=== PATIENT | female | born 1970 | race African-American/Black ===

== ENCOUNTER 2017-04-03 01:20 | Emergency (ER) | payer OTHER ==
[~2017-04-03] VITALS: Ht 167.6 cm; Wt 51.3 kg
[2017-04-03 01:20] VITALS: BP_SYST 135
[~2017-04-03 01:20] MED LIST: CETI1TAB2 PO; HYDR-2296 PO; IBUP-1969 PO; METH750T3 PO
--- NOTE | 2017-04-03 01:20 | NUR ---
Patient to ER bed 4 to gown for evaluation. Side rails up. Report given to RANJANA RAJAN.
--- NOTE | 2017-04-03 01:25 | NUR ---
Patient AOx4, [facility] with complaint of abdominal pain 02/15. Patient states she ate a salad during the day and the salad made her sick because it was 2 days old. Patient states she has hx of osteoarthritis, mast cell histamine disease, and dercum. Patient denies fever/chills/diarrhea. Vomiting x3 episodes. No acute distress noted at this time.
[2017-04-03] MEDS ORDERED: DIPHENHYDRAMINE INJ 50 MG/ML VIAL IVP ONE (01:30)
[2017-04-03] MEDS ORDERED: ONDANSETRON HCL 4 MG/2 ML VIAL IVP ONE (01:30)
[2017-04-03] MEDS ORDERED: NACL 0.9% 1,000 ML IV ONE (01:30)
[2017-04-03] MEDS ORDERED: methylPREDNISolone SOD SUCC/PF 62.5 MG/ML VIAL IVP ONE (01:30)
--- NOTE | 2017-04-03 01:30 | NUR ---
ER MD Benavidez at bedside examining patient.
[2017-04-03] MEDS ORDERED: FAMOTIDINE PF 20 MG/2 ML VIAL IVP ONE (01:45)
--- NOTE | 2017-04-03 01:50 | NUR ---
# 22 gauge angiocath placed to LAC. Use of asceptic technique. Opsite placed over site. Blood return noted. Blood for lab drawn from site. Flushed with 10 cc of normal saline. No evidence of infiltration noted. Patient tolerated well.
[2017-04-03 01:58] LABS: HEMATOCRIT 46.5 % (36-48); HEMOGLOBIN 15.2 g/dL (12.0-16.0); MEAN CORPUSCULAR HEMOGLOBIN 31 pg (27-31); MEAN CORPUSCULAR HGB CONC 33 % (32-36); MEAN CORPUSCULAR VOLUME 94 fL (79.0-98.0); PLATELET COUNT (AUTO) 269 K/uL (130-430); RED BLOOD CELL COUNT(AUTO) 4.95 MIL/uL (4.2-6.2); RED CELL DISTRIBUTION WIDTH 12.4 % (9.0-15.0)
[2017-04-03] MEDS ORDERED: ONDANSETRON HCL 4 MG/2 ML VIAL ONE (01:58)
[2017-04-03 02:06] LABS: CALCIUM 9.3 mg/dL (8.4-11.0); CREATININE 0.85 mg/dL (0.55-1.30)
[2017-04-03 02:12] LABS: TOTAL BILIRUBIN 0.3 mg/dL (0.0-1.0)
--- NOTE | 2017-04-03 02:20 | NUR ---
No adverse reactions noted after medication administration. Will continue to monitor.
--- NOTE | 2017-04-03 02:25 | NUR ---
IVF infusing with no s/s of infiltration at this time. Will cont to monitor.
[2017-04-03 03:25] VITALS: BP_SYST 129
--- NOTE | 2017-04-03 03:25 | NUR ---
Patient given written and verbal discharge instructions and verbalizes understanding. ER MD discussed with patient the results and treatment provided. Patient in stable condition. ID arm band removed. IV catheter removed intact and dressing applied, no active bleeding. Patient educated on pain management and to follow up with PMD. Pain Scale 2/10 tolerable to patient. Opportunity for questions provided and answered.
[2017-04-03 14:24] LABS: EOSINOPHILS % (AUTO) 1.2 % (0.0-4.0); LYMPHOCYTES % (AUTO) 34.5 % (20.5-51.5); MONOCYTES % (AUTO) 4.7 % (1.7-9.3); NEUTROPHILS % (AUTO) 59.1 % (40.0-70.0)
[2017-04-03 14:25] LABS: BASOPHILS % (AUTO) 0.5 % (0.0-2.0); LYMPHOCYTES # (AUTO) 2.4 K/uL (1.0-5.5); NEUTROPHILS # (AUTO) 4.2 K/uL (1.8-7.7)
[2017-04-03 14:26] LABS: EOSINOPHILS # (AUTO) 0.1 K/uL (0.0-0.4); MONOCYTES # (AUTO) 0.3 K/uL (0.0-1.0)
== END 2017-04-03 03:25 | disposition home or self-care (01) ==
LOC: SED 01:20
DX: T62.8X1A Toxic effect of other specified noxious substances eaten as food, accidental (unintentional), initial encounter (principal); R10.9 Unspecified abdominal pain; R11.2 Nausea with vomiting, unspecified; I10 Essential (primary) hypertension; F41.9 Anxiety disorder, unspecified; F17.200 Nicotine dependence, unspecified, uncomplicated; Y92.89 Other specified places as the place of occurrence of the external cause
CPT/HCPCS: 36415; 80053; 83690; 85007; 85027; 96361; 96374; 96375; 99284; J1200; J2405; J2930; J3490; J7030

== ENCOUNTER 2020-04-11 05:36 | Emergency (ER) | payer BC, OTHER ==
[~2020-04-11] VITALS: Ht 167.6 cm; Wt 70.3 kg
[2020-04-11 05:40] VITALS: BP_SYST 155
[2020-04-11 06:13] LABS: BASOPHILS # (AUTO) 0.1 K/uL (0.0-0.2); EOSINOPHILS # (AUTO) 0.1 K/uL (0.0-0.4); EOSINOPHILS % (AUTO) 0.8 % (0.0-4.0); HEMATOCRIT 35.3 % (36-48); HEMOGLOBIN 11.9 g/dL (12.0-16.0); LYMPHOCYTES # (AUTO) 2.3 K/uL (1.0-5.5); LYMPHOCYTES % (AUTO) 32.4 % (20.5-51.5); MEAN CORPUSCULAR HEMOGLOBIN 34 pg (27-31); MEAN CORPUSCULAR HGB CONC 34 % (32-36); MEAN CORPUSCULAR VOLUME 100 fL (79.0-98.0); MONOCYTES # (AUTO) 0.3 K/uL (0.0-1.0); MONOCYTES % (AUTO) 3.9 % (1.7-9.3); NEUTROPHILS # (AUTO) 4.3 K/uL (1.8-7.7); NEUTROPHILS % (AUTO) 61.9 % (40.0-70.0); PLATELET COUNT (AUTO) 200 K/uL (130-430); RED BLOOD CELL COUNT(AUTO) 3.54 MIL/uL (4.2-6.2); RED CELL DISTRIBUTION WIDTH 13.2 % (9.0-15.0)
[2020-04-11] MEDS ORDERED: NACL 0.9% 1,000 ML IV ONE ×2 (06:19→07:30)
[2020-04-11 06:47] LABS: CALCIUM 8.4 mg/dL (8.4-11.0); CREATININE 0.6 mg/dL (0.55-1.30)
[2020-04-11 06:53] LABS: TOTAL BILIRUBIN 0.4 mg/dL (0.0-1.0)
[2020-04-11] MEDS ORDERED: MORPHINE 4 MG/ML INJ. SYRINGE IVP ONE (07:00)
[2020-04-11] MEDS ORDERED: POTASSIUM CHLORIDE 20 MEQ TAB.PRT.SR PO ONE (07:00)
[2020-04-11 07:14] LABS: AMYLASE 62 U/L (0-100); LIPASE 80 U/L (73-393)
[2020-04-11 07:20] LABS: POTASSIUM 2.9 mmol/L (3.5-5.1)
[2020-04-11] MEDS ORDERED: ONDANSETRON HCL 4 MG/2 ML VIAL IVP ONE (07:30)
[2020-04-11] MEDS ORDERED: KETOROLAC TROMETHAMINE 30 MG VIAL IVP ONE (07:30)
[2020-04-11 07:43] LABS: PROTHROMBIN TIME 10.1 SECS (9.5-12.5)
[2020-04-11 09:18] LABS: BILIRUBIN,URINE NEGATIVE (NEGATIVE); BLOOD, URINE NEGATIVE (NEGATIVE); COLOR,URINE YELLOW (YELLOW); GLUCOSE,URINE NEGATIVE (NEGATIVE); KETONES,URINE NEGATIVE (NEGATIVE); LEUKOCYTE ESTERASE ,URINE NEGATIVE (NEGATIVE); NITRITE, URINE NEGATIVE (NEGATIVE); PROTEIN URINE NEGATIVE (NEGATIVE); UROBILINOGEN,URINE 0.2 (0.2-1.0)
[2020-04-11 09:23] LABS: CLARITY/URINE SLIGHTLY HAZY (CLEAR)
[2020-04-11 09:25] LABS: HCG,QUAL RESULT NEGATIVE (NEGATIVE)
[2020-04-11 09:39] VITALS: BP_SYST 135
== END 2020-04-11 09:38 | disposition home or self-care (01) ==
LOC: SED 05:36
DX: R11.10 Vomiting, unspecified (principal); R19.7 Diarrhea, unspecified; I10 Essential (primary) hypertension; Z79.899 Other long term (current) drug therapy
CPT/HCPCS: 36415; 70450; 74177; 80053; 81003; 81025; 82150; 83690; 84484; 84703; 85025; 85610; 93005; 96361; 96374; 96375; 99285; J1885; J2270; J2405; J7030; Q9967

== ENCOUNTER 2021-12-07 11:02 | Emergency (ER) | payer BC, MEDICAID ==
[~2021-12-07] VITALS: Ht 167.6 cm; Wt 70.3 kg
[2021-12-07 11:02] VITALS: BP_SYST 135
[~2021-12-07 11:02] MED LIST changes: +METH-634 PO; -METH750T3 PO
--- NOTE | 2021-12-07 11:02 | NUR ---
BROUGHT BACK TO BED #5 AND TRIAGED. REPORT GIVEN TO DIANA
--- NOTE | 2021-12-07 11:30 | NUR ---
ASSUMED CARE OF PT. C/O RIGHT HIP PAIN. PT HAS CHRONIC HIP PAIN. CURRENTLY WITH PAIN MANAGEMENT. TAKE PERCOCET, GABAPENTIN, SOMA FOR PAIN. CURRENTLY AWAITING FOR APPOINTMENT TO HAVE MEDICATION REFILLED. STATED HAVING BREAKTHROUGH PAIN AND NEEDING SOMETHING UNTIL HER NEXT APPOINTMENT. CURRENTLY STATING 10/10 ON THE PAIN SCALE.
--- NOTE | 2021-12-07 12:23 | NUR ---
md JACOBSON AT BEDSIDE FOR EVALUATION.
[2021-12-07] MEDS ORDERED: MORPHINE 4 MG INJ. 4 MG/ML VIAL IVP ONE (12:30)
[2021-12-07 12:48] LABS: BASOPHILS # (AUTO) 0.1 K/uL (0.0-0.2); BASOPHILS % (AUTO) 1.3 % (0.0-2.0); EOSINOPHILS # (AUTO) 0.1 K/uL (0.0-0.4); EOSINOPHILS % (AUTO) 1.3 % (0.0-4.0); HEMATOCRIT 36.9 % (36-48); HEMOGLOBIN 12.6 g/dL (12.0-16.0); LYMPHOCYTES # (AUTO) 1.8 K/uL (1.0-5.5); LYMPHOCYTES % (AUTO) 43.4 % (20.5-51.5); MEAN CORPUSCULAR HEMOGLOBIN 33 pg (27-31); MEAN CORPUSCULAR HGB CONC 34 % (32-36); MEAN CORPUSCULAR VOLUME 96 fL (79.0-98.0); MONOCYTES # (AUTO) 0.3 K/uL (0.0-1.0); MONOCYTES % (AUTO) 6.3 % (1.7-9.3); NEUTROPHILS % (AUTO) 47.7 % (40.0-70.0); PLATELET COUNT (AUTO) 213 K/uL (130-430); RED BLOOD CELL COUNT(AUTO) 3.85 MIL/uL (4.2-6.2); RED CELL DISTRIBUTION WIDTH 13.4 % (9.0-15.0); WHITE BLOOD COUNT (AUTO) 4.3 K/uL (4.8-10.8)
[2021-12-07] MEDS ORDERED: MORPHINE 4 MG INJ. 4 MG/ML VIAL IM ONE (13:00)
[2021-12-07 13:18] LABS: ANION GAP 11 (5-15); CALCIUM 8.6 mg/dL (8.4-11.0); CHLORIDE 108 mmol/L (98-107); CREATININE 0.81 mg/dL (0.55-1.30); GLUCOSE 91 mg/dL (70-99); POTASSIUM 3.3 mmol/L (3.5-5.1); SODIUM SERUM 142 mmol/L (136-145); UREA NITROGEN, BLOOD 9 mg/dL (8-21)
[2021-12-07 13:32] LABS: ALANINE AMINOTRANSFERASE 18 U/L (12-78); ASPARTATE AMINOTRANSFERASE 21 U/L (10-37); TOTAL BILIRUBIN 0.6 mg/dL (0.0-1.0)
[2021-12-07 13:34] LABS: GFR AFRICAN AMERICAN 97 mL/min (>90)
[2021-12-07 13:51] LABS: BILIRUBIN,URINE NEGATIVE (NEGATIVE); CLARITY/URINE CLEAR (CLEAR); COLOR,URINE YELLOW (YELLOW); GLUCOSE,URINE NEGATIVE (NEGATIVE); KETONES,URINE TRACE (NEGATIVE); LEUKOCYTE ESTERASE ,URINE NEGATIVE (NEGATIVE); NITRITE, URINE NEGATIVE (NEGATIVE); PROTEIN URINE NEGATIVE (NEGATIVE); UROBILINOGEN,URINE 0.2 (0.2-1.0)
[2021-12-07 13:53] LABS: BLOOD, URINE TRACE (NEGATIVE)
[2021-12-07 14:14] LABS: BACTERIA,URINE FEW /HPF (None Seen); WBC,URINE 0-3 /HPF (0-3)
[2021-12-07] MEDS ORDERED: POTASSIUM CHLORIDE 20 MEQ TAB.PRT.SR PO ONE (14:15)
[2021-12-07 14:41] VITALS: BP_SYST 135
--- NOTE | 2021-12-07 15:54 | NUR ---
Patient given written and verbal discharge instructions and verbalizes understanding. DR.RHEE SMOOTH SANCHEZ discussed with patient the results and treatment provided. Patient in stable condition. ID arm band removed. Patient educated on pain management and to follow up with PMD. Pain Scale 0/10 Opportunity for questions provided and answered. Medication side effect fact sheet provided.
== END 2021-12-07 15:54 | disposition home or self-care (01) ==
LOC: SED 11:02
DX: G89.29 Other chronic pain (principal); E87.6 Hypokalemia; M25.551 Pain in right hip; I10 Essential (primary) hypertension; Z79.899 Other long term (current) drug therapy
CPT/HCPCS: 36415; 73502; 80053; 81000; 83605; 84484; 85025; 87040; 87086; 93005; 96372; 99285; J2270